=== PATIENT | male | born 1970 | race Caucasian/White ===

== ENCOUNTER 2019-02-03 08:04 | Day surgery (SDC) ==
[2019-02-03] MEDS: TETRACAINE 0.5% UNIT-DOSE OP PRN ×2 (08:15→09:20)
[2019-02-03] MEDS: BETADINE OPTH PREP OP PRN ×2 (08:15→09:20)
[2019-02-03] MEDS: CYCLOGYL 2% OPTH OP PRN ×3 (08:16→08:26)
[2019-02-03] MEDS ORDERED: LIDOCAINE 1% 20 ML MDV ID STA (08:23)
[2019-02-03] MEDS ORDERED: ZOFRAN 4 MG/2 ML IVP ONE (08:23)
[2019-02-03] MEDS ORDERED: SUBLIMAZE ONE (09:27)
[2019-02-03] MEDS ORDERED: ZOFRAN 4 MG/2 ML ONE (09:27)
[2019-02-03] MEDS ORDERED: DIPRIVAN 20 ML VIAL IVP ONE (09:27)
[2019-02-03] MEDS: DEX-MOXI-KETOR OPTH INJ 1/0.5/0.4 MG/ML IO ONE ×2 (09:27→09:33)
[2019-02-03] MEDS: LIDOCAINE 1%/PHENYLEPHRINE 1.5% BSS (SURGERY) INTRAOCULA ONE ×2 (09:27→09:33)
[2019-02-03] MEDS: BSS WITH EPINEPHRINE OP ONE ×2 (09:27→09:33)
[2019-02-03] MEDS ORDERED: VERSED ONE (09:27)
[2019-02-03 15:15] VITALS: BP 122/87; TEMP 97.2
== END 2019-02-03 10:15 | disposition home or self-care (01) ==
LOC: SURG 08:04
PROVIDERS: ATTEND Ophthalmology
DX: H25.812 Combined forms of age-related cataract, left eye (principal)

== ENCOUNTER 2019-02-18 07:53 | Day surgery (SDC) ==
[2019-02-18] MEDS: BETADINE OPTH PREP OP PRN ×2 (08:35→09:20)
[2019-02-18] MEDS: TETRACAINE 0.5% UNIT-DOSE OP PRN ×2 (08:35→09:20)
[2019-02-18] MEDS: CYCLOGYL 2% OPTH OP PRN ×3 (08:36→08:46)
[2019-02-18] MEDS ORDERED: ZOFRAN 4 MG/2 ML IVP ONE (08:43)
[2019-02-18] MEDS ORDERED: LIDOCAINE 1%/PHENYLEPHRINE 1.5% BSS (SURGERY) INTRAOCULA ONE (08:43)
[2019-02-18] MEDS ORDERED: LIDOCAINE 1% 20 ML MDV ID STA (08:43)
[2019-02-18] MEDS ORDERED: DEX-MOXI-KETOR OPTH INJ 1/0.5/0.4 MG/ML IO ONE (08:43)
[2019-02-18] MEDS ORDERED: BSS WITH EPINEPHRINE OP ONE (08:43)
[2019-02-18 08:46] VITALS: TEMP 98.4
[2019-02-18] MEDS ORDERED: SUBLIMAZE ONE (09:23)
[2019-02-18] MEDS ORDERED: ZOFRAN 4 MG/2 ML ONE (09:23)
[2019-02-18] MEDS ORDERED: VERSED ONE (09:23)
[2019-02-18 13:14] VITALS: BP 96/63
== END 2019-02-18 10:20 | disposition home or self-care (01) ==
LOC: SURG 07:53
PROVIDERS: ATTEND Ophthalmology
DX: H25.811 Combined forms of age-related cataract, right eye (principal)